=== PATIENT | female | born 1990 | race Caucasian/White ===

== ENCOUNTER 2018-06-14 06:44 | Day surgery (SDC) | payer BC ==
[~2018-06-14] VITALS: Ht 162.6 cm; Wt 50.3 kg
[~2018-06-14 06:44] MED LIST: NS 1,000 ML IV ONE; SERT-155 PO; ZOLO50TA PO
[2018-06-14] MEDS ORDERED: LIDOCAINE 2% INJ 100 MG/5 ML SDV (FOR ANES.) As Ordered ONE (07:29)
[2018-06-14] MEDS ORDERED: PROPOFOL 200 MG/20 ML VIAL As Ordered ONE ×2 (07:29→07:43)
--- NOTE | 2018-06-14 08:09 | ROOR ---
Patient Name: Maya Alonso Procedure Date: 06/14/2018 7:34 AM Date of : 1990 Age: 27 Room: [facility] Gender: Female Note Status: Finalized Procedure: Colonoscopy Indications: Chronic diarrhea, Hematochezia Providers: Neil Garcia MD Referring MD: Mercedez Hubbard MD Requesting Provider: Medicines: Monitored Anesthesia Care Complications: No immediate complications. Procedure: Pre-Anesthesia Assessment: - Prior to the procedure, a History and Physical was performed, and patient medications and allergies were reviewed. The patient is competent. The risks and benefits of the procedure and the sedation options and risks were discussed with the patient. All questions were answered and informed consent was obtained. Patient identification and proposed procedure were verified by the physician, the nurse and the anesthesiologist in the procedure room. Mental Status Examination: alert and oriented. Airway Examination: normal oropharyngeal airway and neck mobility. Respiratory Examination: clear to auscultation. CV Examination: normal. Prophylactic Antibiotics: The patient does not require prophylactic antibiotics. Prior Anticoagulants: The patient has taken no previous anticoagulant or antiplatelet agents. ASA Grade Assessment: II - A patient with mild systemic disease. After reviewing the risks and benefits, the patient was deemed in satisfactory condition to undergo the procedure. The anesthesia plan was to use monitored anesthesia care (MAC). Immediately prior to administration of medications, the patient was re-assessed for adequacy to receive sedatives. The heart rate, respiratory rate, oxygen saturations, blood pressure, adequacy of pulmonary ventilation, and response to care were monitored throughout the procedure. The physical status of the patient was re-assessed after the procedure. The Colonoscope was introduced through the anus and advanced to the terminal ileum, with identification of the appendiceal orifice and IC valve. The colonoscopy was performed without difficulty. The patient tolerated the procedure well. The quality of the bowel preparation was good. The terminal ileum, ileocecal valve, appendiceal orifice, and rectum were photographed. Scope insertion time was 3 minutes. Scope withdrawal time was 9 minutes. The total duration of the procedure was 12 minutes. Findings: The perianal and digital rectal examinations were normal. The terminal ileum appeared normal. A continuous area of nonbleeding ulcerated mucosa with stigmata of recent bleeding was present in the rectum, in the sigmoid colon and in the descending colon. Two biopsies were obtained with cold forceps for histology in the transverse colon, as well as two biopsies in the descending colon and four biopsies in the recto-sigmoid colon. Verification of patient identification for the specimen was done by the physician and nurse using the patient's name, date and medical record number. Estimated blood loss was minimal. Non-bleeding external and internal hemorrhoids were found during retroflexion. The hemorrhoids were small. Impression: - The examined portion of the ileum was normal. - Mucosal ulceration. - Non-bleeding external and internal hemorrhoids. - Biopsies performed in the transverse colon, in the descending colon and in the recto-sigmoid colon. Recommendation: - Patient has a contact number available for emergencies. The signs and symptoms of potential delayed complications were discussed with the patient. Return to normal activities tomorrow. Written discharge instructions were provided to the patient. - High fiber diet. - Continue present medications. - Use Delzicol 400 mg 2 tabs PO TID for 8 weeks. - Use Rowasa enemas 1 per rectum daily for 2 weeks. - Use Entocort EC (budesonide) 9 mg PO one time per day for 4 weeks then taper to 6 mg for 4 weeks and then 3mg. - Repeat colonoscopy in 1 year to check healing. - Return to GI office in [facility] (address [address], [address], [place], [facility]) in 4 -- 6 weeks. Please call GI clinic @ [phone] for apppointment date and time. - Return to primary care physician. Neil Garcia MD Neil Garcia MD 06/14/2018 8:08:32 AM Electronically signed by Neil Garcia MD Number of Addenda: 0 Note Initiated On: 06/14/2018 7:34 AM Estimated Blood Loss: Estimated blood loss was minimal.
[2018-06-14 08:37] VITALS: BP 109/69
== END 2018-06-14 08:38 | disposition home or self-care (01) ==
LOC: M OPP 06:44
PROVIDERS: ATTEND Internal Medicine Gastroenterology
DX: K64.8 Other hemorrhoids (principal); K63.3 Ulcer of intestine; K52.9 Noninfective gastroenteritis and colitis, unspecified; R19.7 Diarrhea, unspecified; K92.1 Melena

== ENCOUNTER → 2020-06-07 | Outpatient (CLI) | payer BC ==
[~2020-06-07] MED LIST changes: +D31000TA2 PO; +MESA800T8 PO; -NS 1,000 ML IV ONE; -SERT-155 PO; +SERT50TA29 PO; +VITMTA PO
== END ==
LOC: M LABSMTC 09:30
PROVIDERS: ATTEND Anesthesiology
DX: Z01.812 Encounter for preprocedural laboratory examination (principal)

== ENCOUNTER 2020-06-11 06:53 | Day surgery (SDC) | payer BC ==
[~2020-06-11] VITALS: Ht 162.6 cm; Wt 49.9 kg
[2020-06-11] MEDS ORDERED: NS 1,000 ML IV ONE (07:00)
[2020-06-11] MEDS ORDERED: LIDOCAINE 2% 100MG/5ML SDV (FOR ANES.) As Ordered ONE (07:14)
[2020-06-11] MEDS ORDERED: propofoL 200 MG/20 ML VIAL As Ordered ONE ×2 (07:14→07:15)
[2020-06-11] MEDS ORDERED: PHENYLephrine 500MCG 5ML (100MCG/ML) SYRINGE As Ordered ONE (07:35)
--- NOTE | 2020-06-11 08:04 | ROOR ---
Patient Name: Maya Alonso Procedure Date: 06/11/2020 7:26 AM Date of : 1990 Age: 29 Room: [facility] Gender: Female Note Status: Finalized Procedure: Colonoscopy Indications: Disease activity assessment of left-sided chronic ulcerative colitis, Assess therapeutic response to therapy of left-sided chronic ulcerative colitis Providers: Neil Garcia MD Referring MD: Gwendolyn Messina NP Requesting Provider: Medicines: Monitored Anesthesia Care Complications: No immediate complications. Procedure: Pre-Anesthesia Assessment: - Prior to the procedure, a History and Physical was performed, and patient medications and allergies were reviewed. The patient is competent. The risks and benefits of the procedure and the sedation options and risks were discussed with the patient. All questions were answered and informed consent was obtained. Patient identification and proposed procedure were verified by the physician, the nurse and the anesthesiologist in the procedure room. Mental Status Examination: alert and oriented. Airway Examination: normal oropharyngeal airway and neck mobility. Respiratory Examination: clear to auscultation. CV Examination: normal. Prophylactic Antibiotics: The patient does not require prophylactic antibiotics. Prior Anticoagulants: The patient has taken no previous anticoagulant or antiplatelet agents. ASA Grade Assessment: II - A patient with mild systemic disease. After reviewing the risks and benefits, the patient was deemed in satisfactory condition to undergo the procedure. The anesthesia plan was to use monitored anesthesia care (MAC). Immediately prior to administration of medications, the patient was re-assessed for adequacy to receive sedatives. The heart rate, respiratory rate, oxygen saturations, blood pressure, adequacy of pulmonary ventilation, and response to care were monitored throughout the procedure. The physical status of the patient was re-assessed after the procedure. The Colonoscope was introduced through the anus and advanced to the terminal ileum, with identification of the appendiceal orifice and IC valve. The colonoscopy was performed without difficulty. The patient tolerated the procedure well. The quality of the bowel preparation was good. The terminal ileum, ileocecal valve, appendiceal orifice, and rectum were photographed. Scope insertion time was 3 minutes. Scope withdrawal time was 8 minutes. The total duration of the procedure was 11 minutes. Findings: The perianal and digital rectal examinations were normal. The terminal ileum appeared normal. Inflammation characterized by congestion (edema), erosions, erythema and loss of vascularity was found in a continuous and circumferential pattern in the rectum. The area from sigmoid to cecum was spared. This was mild in severity and graded as Hernández Score 2 (moderate, with marked erythema, absent vascular pattern, friability, erosions), and when compared to previous examinations, the findings are improved. Five biopsies were obtained with cold forceps for histology in the right colon, as well as four biopsies in the rectum. Verification of patient identification for the specimen was done by the physician and nurse using the patient's name, date and medical record number. Estimated blood loss was minimal. Non-bleeding external and internal hemorrhoids were found during retroflexion. The hemorrhoids were small. Impression: - The examined portion of the ileum was normal. - Proctitis. Inflammation was found in the rectum. This was mild in severity and graded as Hernández Score 2 (moderate disease), improved compared to previous examinations. - Non-bleeding external and internal hemorrhoids. - Biopsies performed in the right colon and in the rectum. Recommendation: - Patient has a contact number available for emergencies. The signs and symptoms of potential delayed complications were discussed with the patient. Return to normal activities tomorrow. Written discharge instructions were provided to the patient. - High fiber diet. - Continue present medications. - Use Delzicol 400 mg 2 tabs PO BID. - Use Canasa 1000 mg suppository 1 per rectum QHS for 3 weeks. - Await pathology results. - Repeat colonoscopy in 10 years for surveillance based on pathology results. - Telephone GI clinic for pathology results in 2 weeks. - Return to primary care physician. Procedure Code(s): --- Professional --- 25873, Colonoscopy, flexible; with biopsy, single or multiple Diagnosis Code(s): --- Professional --- K64.8, Other hemorrhoids K52.9, Noninfective gastroenteritis and colitis, unspecified K51.50, Left sided colitis without complications CPT copyright 2019 [employer]. All rights reserved. The codes documented in this report are preliminary and upon patent prosecution attorney review may be revised to meet current compliance requirements. Neil Garcia MD Neil Garcia MD 06/11/2020 8:04:18 AM Electronically signed by Neil Garcia MD Number of Addenda: 0 Note Initiated On: 06/11/2020 7:26 AM Estimated Blood Loss: Estimated blood loss was minimal.
[2020-06-11 08:15] VITALS: BP 95/54
== END 2020-06-11 08:30 | disposition home or self-care (01) ==
LOC: M OPP 06:53
PROVIDERS: ATTEND Internal Medicine Gastroenterology
DX: K52.9 Noninfective gastroenteritis and colitis, unspecified (principal); K64.8 Other hemorrhoids; K51.50 Left sided colitis without complications; Z79.899 Other long term (current) drug therapy
CPT/HCPCS: 45380; 88305; J2370

== ENCOUNTER → 2022-08-31 | Outpatient (REF) | payer BC ==
[~2022-08-31] MED LIST changes: -D31000TA2 PO; +VITA100093 PO
[2022-08-31 14:20] LABS: APPEARANCE, URINE CLEAR (CLEAR); BACTERIA, URINE AUTO NEGATIVE (NEGATIVE); BILIRUBIN, URINE AUTO NEGATIVE (NEGATIVE); BLOOD, URINE BLOOD NEGATIVE (NEGATIVE); COLOR, URINE YELLOW (YELLOW); GLUCOSE, URINE (UA) AUTO NEGATIVE (NEGATIVE); KETONE, URINE AUTO NEGATIVE (NEGATIVE); LEUKOCYTE ESTERASE, URINE AUTO NEGATIVE (NEGATIVE); NITRITE, URINE AUTO NEGATIVE (NEGATIVE); PROTEIN, URINE AUTO NEGATIVE (NEGATIVE); RBC, URINE AUTO 1 /HPF (0-3); SPECIFIC GRAVITY URINE AUTO 1.021 (1.002-1.035); SQUAMOUS EPITHELIAL CELL UR AU 1 /HPF (0-6); UROBILINOGEN, URINE AUTO 0.2 mg/dL (0.0-2.0); WBC, URINE AUTO 1 /HPF (0-3)
== END ==
LOC: M SMT 13:24
PROVIDERS: ATTEND Specialist
DX: R30.0 Dysuria (principal)